=== PATIENT | female | born 1940 | race Caucasian/White ===

== ENCOUNTER 2023-05-11 17:01 | Emergency (ER) | payer OTHER, MEDICARE ==
[~2023-05-11] VITALS: Ht 172.7 cm; Wt 63.5 kg
[2023-05-11] MEDS ORDERED: FUROSEMIDE40 MG PO (17:43)
[2023-05-11] MEDS ORDERED: Potassium Chlo20 ME1 PO (17:44)
[2023-05-11] MEDS ORDERED: ESCI10 PO (17:44)
[2023-05-11] MEDS ORDERED: Flurbiprofen100 MG PO (17:45)
[2023-05-11] MEDS ORDERED: EUTHYROX100 MC1 (17:46)
[2023-05-11 18:54] LABS: BASOPHILS ABSOLUTE AUTO 0.07 K/mm3 (0.00-0.23); BASOPHILS PERCENT AUTO 1 % (0-2); EOSINOPHILS ABSOLUTE AUTO 1.15 K/mm3 (0.00-0.68); EOSINOPHILS PERCENT AUTO 11 % (0-6); Hematocrit 46.8 % (33.0-51.0); Hemoglobin 15.8 g/dL (11.5-16.0); IMMATURE GRAN ABSOLUTE AUTO 0.05 K/mm3 (0.00-0.10); IMMATURE GRAN PERCENT AUTO 1 % (0-1); LYMPHOCYTES ABSOLUTE AUTO 2.72 K/mm3 (0.84-5.20); LYMPHOCYTES PERCENT AUTO 27 % (21-46); MONOCYTES PERCENT AUTO 7 % (4-13); Mean Corpuscular HGB 30.6 pg (26.0-34.0); Mean Corpuscular HGB Conc 33.8 g/dL (31.5-36.5); Mean Corpuscular Volume 91 fL (80-100); Mean Platelet Volume 8.9 fL (9.1-12.4); NEUTROPHILS ABSOLUTE AUTO 5.57 K/mm3 (1.96-9.15); NEUTROPHILS PERCENT AUTO 54 % (41-73); Platelet Count 263 K/mm3 (150-400); RDW Coefficient Variation 13.2 % (11.7-14.2); RDW Standard Deviation 44.7 fL (35.1-46.3); Red Blood Cell Count 5.17 M/mm3 (3.80-5.20); White Blood Cell Count 10.26 K/mm3 (4.00-11.30)
[2023-05-11 19:12] LABS: Calcium, Blood 10.1 mg/dL (8.5-10.1); Creatinine, Blood 1.62 mg/dL (0.40-1.00)
[2023-05-11 19:30] LABS: International Normalized Ratio 0.94; Prothrombin Time Results 9.9 Sec (9.7-11.5)
[2023-05-11 23:00] VITALS: BP 143/62
== END 2023-05-11 23:49 | disposition home or self-care (01) ==
LOC: ER 17:01
PROVIDERS: Emergency Medicine
DX: S06.5X0A Traumatic subdural hemorrhage without loss of consciousness, initial encounter (principal); S06.6X0A Traumatic subarachnoid hemorrhage without loss of consciousness, initial encounter; W01.10XA Fall on same level from slipping, tripping and stumbling with subsequent striking against unspecified object, initial encounter; Z88.0 Allergy status to penicillin; Z88.8 Allergy status to other drugs, medicaments and biological substances; Z91.048 Other nonmedicinal substance allergy status; Z79.899 Other long term (current) drug therapy
CPT/HCPCS: 70450; 80048; 85025; 85610; 85730; A9270

== ENCOUNTER 2023-05-21 10:02 | Emergency (ER) | payer MEDICARE ==
[~2023-05-21] VITALS: Ht 170.2 cm; Wt 62.6 kg
[~2023-05-21 10:02] MED LIST: ESCI10 PO; EUTHYROX100 MC1; FUROSEMIDE40 MG PO; Flurbiprofen100 MG PO; Potassium Chlo20 ME1 PO
[2023-05-21 10:45] VITALS: BP 170/98
[2023-05-21] MEDS ORDERED: Roxicodone5 MG PO (12:45)
== END 2023-05-21 12:53 | disposition home or self-care (01) ==
LOC: ER 10:02
DX: S06.5XAA Traumatic subdural hemorrhage with loss of consciousness status unknown, initial encounter (principal); M25.512 Pain in left shoulder; W18.30XA Fall on same level, unspecified, initial encounter; Z88.0 Allergy status to penicillin; Z88.8 Allergy status to other drugs, medicaments and biological substances; Z91.048 Other nonmedicinal substance allergy status; Z79.899 Other long term (current) drug therapy
CPT/HCPCS: 70450; 73030; 99284-25

== ENCOUNTER 2023-10-02 20:05 | Inpatient (IN) | payer MEDICARE ==
[~2023-10-02] VITALS: Ht 172.7 cm; Wt 67.8 kg
[~2023-10-02 20:05] MED LIST changes: +Roxicodone5 MG PO
[2023-10-02 21:03] LABS: BASOPHILS ABSOLUTE AUTO 0.04 K/mm3 (0.00-0.23); BASOPHILS PERCENT AUTO 1 % (0-2); EOSINOPHILS ABSOLUTE AUTO 0.16 K/mm3 (0.00-0.68); EOSINOPHILS PERCENT AUTO 2 % (0-6); Hemoglobin 14.2 g/dL (11.5-16.0); IMMATURE GRAN ABSOLUTE AUTO 0.03 K/mm3 (0.00-0.10); IMMATURE GRAN PERCENT AUTO 0 % (0-1); LYMPHOCYTES ABSOLUTE AUTO 1.92 K/mm3 (0.84-5.20); LYMPHOCYTES PERCENT AUTO 26 % (21-46); MONOCYTES ABSOLUTE AUTO 0.61 K/mm3 (0.16-1.47); MONOCYTES PERCENT AUTO 8 % (4-13); Mean Corpuscular HGB 30.5 pg (26.0-34.0); Mean Corpuscular HGB Conc 33.8 g/dL (31.5-36.5); Mean Corpuscular Volume 90 fL (80-100); Mean Platelet Volume 8.7 fL (9.1-12.4); NEUTROPHILS ABSOLUTE AUTO 4.59 K/mm3 (1.96-9.15); NEUTROPHILS PERCENT AUTO 63 % (41-73); Platelet Count 223 K/mm3 (150-400); RDW Coefficient Variation 11.4 % (11.7-14.2); RDW Standard Deviation 37.4 fL (35.1-46.3); Red Blood Cell Count 4.66 M/mm3 (3.80-5.20); White Blood Cell Count 7.35 K/mm3 (4.00-11.30)
[2023-10-02 21:30] LABS: Albumin, Blood 4.1 g/dL (3.4-5.0); Albumin/Globulin Ratio 1.1 (0.8-1.8); Bilirubin, Total 0.5 mg/dL (0.1-1.0); Bun/Creatinine Ratio 14.9 (12.0-20.0); Calcium, Blood 13.8 mg/dL (8.5-10.1); Creatinine, Blood 4.02 mg/dL (0.40-1.00); Globulin, Blood 3.8 g/dL (2.2-4.0); Potassium, Blood 3.1 mmol/L (3.5-5.5); Total Protein, Blood 7.9 g/dL (6.4-8.2)
[2023-10-02 21:55] LABS: Magnesium, Blood 3.7 mg/dL (1.6-2.4)
[2023-10-03 02:12] LABS: Source, Urine Clean Catch
[2023-10-03 02:20] LABS: Bilirubin, Urine Neg (Neg); Blood, Urine 2+ (Neg); Glucose Qualitative, Urine Neg (Neg); Ketones, Urine Neg (Neg); Leukocyte Esterase, Urine 3+ (Neg); Nitrite, Urine Neg (Neg); Protein, Urine 2+ (Neg); Urobilinogen, Urine NORM (Normal)
[2023-10-03 02:38] LABS: Appearance, Urine Clear (Clear); Color, Urine Yellow (P-Yellow)
[2023-10-03 02:39] LABS: Bacteria Few /hpf; Red Blood Cells, Urine 0-2 /hpf (0-2); Squamous Epithelial Cells Rare /hpf (Few); Transitional Epithelial Cells Few /hpf (0-Rare)
[2023-10-03 03:42] VITALS: BP 187/78
[2023-10-03 05:00] VITALS: BP 160/68
--- NOTE | 2023-10-03 06:24 | NUR ---
SHIFT SUMMARY PT ER ADMIT THIS SHIFT FOR ACUTE RENAL FAILURE. PT REPORTS THAT SHE HAS BEEN HAVING WEAKNESS AT HOME. LABS REVEALED DECREASED RENAL FUNCTION AND HYPERCALCEMIA. PT MEDICATED FOR HYPERCALCEMIA WHILE IN ER. IVF HAVE BEEN STARTED PER EMAR ORDERS. PT REPORTS MILD MATT 3/10, DECLINES ANYTHING FOR PAIN. SHE DOES NOT REPORT N/V. DENIES SOB AT REST, RESP APPEAR E/U AT REST BUT PT DOES REPORT THAT SHE HAS BEEN EXPERIENCING SOME INCREASED SOB WITH A LOT OF ACTIVITY. SATS WNL ON RA. PT HYPERTENSIVE UPON ADMISSION, BP READING IS IMPROVED WITH RECENT CHECK AND DOES NOT REQUIRE PRN HYDRALYZINE PER PARAMETERS. PT RESTING IN BED AT THIS TIME. ADMISSION COMPLETE. BED IN LOWEST POSITION, CALL LIGHT WITHIN REACH.
[2023-10-03 08:20] VITALS: BP 145/69
[2023-10-03 08:30] LABS: BASOPHILS ABSOLUTE AUTO 0.05 K/mm3 (0.00-0.23); BASOPHILS PERCENT AUTO 1 % (0-2); EOSINOPHILS PERCENT AUTO 3 % (0-6); Hematocrit 37.1 % (33.0-51.0); Hemoglobin 12.7 g/dL (11.5-16.0); IMMATURE GRAN ABSOLUTE AUTO 0.03 K/mm3 (0.00-0.10); IMMATURE GRAN PERCENT AUTO 0 % (0-1); LYMPHOCYTES ABSOLUTE AUTO 2.25 K/mm3 (0.84-5.20); LYMPHOCYTES PERCENT AUTO 30 % (21-46); MONOCYTES ABSOLUTE AUTO 0.62 K/mm3 (0.16-1.47); MONOCYTES PERCENT AUTO 8 % (4-13); Mean Corpuscular HGB 30.8 pg (26.0-34.0); Mean Corpuscular HGB Conc 34.2 g/dL (31.5-36.5); Mean Corpuscular Volume 90 fL (80-100); Mean Platelet Volume 8.8 fL (9.1-12.4); NEUTROPHILS ABSOLUTE AUTO 4.42 K/mm3 (1.96-9.15); NEUTROPHILS PERCENT AUTO 58 % (41-73); Platelet Count 194 K/mm3 (150-400); RDW Coefficient Variation 11.4 % (11.7-14.2); RDW Standard Deviation 37.7 fL (35.1-46.3); Red Blood Cell Count 4.12 M/mm3 (3.80-5.20); White Blood Cell Count 7.57 K/mm3 (4.00-11.30)
[2023-10-03 08:50] LABS: Albumin, Blood 3.5 g/dL (3.4-5.0); Albumin/Globulin Ratio 1.1 (0.8-1.8); Bilirubin, Total 0.4 mg/dL (0.1-1.0); Bun/Creatinine Ratio 13.2 (12.0-20.0); Creatinine, Blood 3.7 mg/dL (0.40-1.00); Globulin, Blood 3.2 g/dL (2.2-4.0); Potassium, Blood 3.1 mmol/L (3.5-5.5); Total Protein, Blood 6.7 g/dL (6.4-8.2)
[2023-10-03 08:51] LABS: Calcium, Blood 11.7 mg/dL (8.5-10.1)
[2023-10-03 16:51] VITALS: BP 152/71
--- NOTE | 2023-10-03 17:50 | NUR ---
SHIFT SUMMARY PT AOX4, SOME CONFUSION AT TIMES. INDEPENDENT IN THE ROOM. SHE HAS BEEN SLEEPING MOST OF THE SHIFT. PT IS CONTINENT. TELE IS IN PLACE. NO COMPLAINTS THIS SHIFT. CALL LIGHT WITHIN REACH, BED IN THE LOWEST POSITION. WILL REPORT TO ONCOMING NURSE.
[2023-10-03 19:23] VITALS: BP 131/54
--- NOTE | 2023-10-03 23:05 | NUR ---
RECEIVED CALL FROM [employer] STATING THAT PT'S HEART RHYTHM HAD DEMONSTRATED A 22 BEAT RUN OF VTACH. THIS RN WAS IN THE ROOM WITH PT AT THE TIME AND PT WAS IN THE BATHROOM HAVING A BOWEL MOVEMENT, DENIED ANY SYMPTOMS. CALLED AND NOTIFIED HOSPITALIST, RECEIVED ORDER FOR POTASSIUM AND MAGNESIUM BLOOD LEVELS AND TO CALL BACK IF THE POTASSIUM IS LESS THAN FOUR OR IF THE MAGNESIUM IS LESS THAN TWO.
[2023-10-03 23:37] LABS: Magnesium, Blood 2.3 mg/dL (1.6-2.4); Potassium, Blood 3.8 mmol/L (3.5-5.5)
[2023-10-04 04:02] VITALS: BP 131/62
[2023-10-04 05:00] LABS: Hematocrit 36.2 % (33.0-51.0); Hemoglobin 12.1 g/dL (11.5-16.0); Mean Corpuscular HGB 30.3 pg (26.0-34.0); Mean Corpuscular HGB Conc 33.4 g/dL (31.5-36.5); Mean Corpuscular Volume 91 fL (80-100); Platelet Count 188 K/mm3 (150-400); RDW Coefficient Variation 11.7 % (11.7-14.2); RDW Standard Deviation 38.7 fL (35.1-46.3); White Blood Cell Count 6.22 K/mm3 (4.00-11.30)
[2023-10-04 05:35] LABS: Albumin, Blood 3.2 g/dL (3.4-5.0); Anion Gap 6 mmol/L (6-16); Blood Urea Nitrogen 44 mg/dL (8-24); Bun/Creatinine Ratio 13.3 (12.0-20.0); CO2, Blood 24 mmol/L (21-32); Chloride, Blood 108 mmol/L (98-108); Creatinine, Blood 3.31 mg/dL (0.40-1.00); Glomerular Filtration Rate 13 (60-); Glucose, Blood 98 mg/dL (70-99); Magnesium, Blood 2.4 mg/dL (1.6-2.4); Phosphorus, Blood 2.9 mg/dL (2.5-4.9); Potassium, Blood 3.4 mmol/L (3.5-5.5); Sodium, Blood 138 mmol/L (136-145)
--- NOTE | 2023-10-04 05:56 | NUR ---
SHIFT SUMMARY: MARK IS A&OX4. VSS, ONE 22-BEAT RUN OF VTACH WHICH WAS REPORTED TO THE HOSPITALIST, PLEASE SEE ORDERS. PT DENIES ANY CHEST PAIN OR SOB, IS TOLERATING PO INTAKE WELL, AND REPORTS THAT HER RIGHT GREAT TOE IS PAINFUL WHEN "SQUEEZED" AND STATES THAT IT MAY BE THE SOURCE OF HER PROBLEMS. PT HAD A BOWEL MOVEMENT THIS SHIFT. IV TO R AC PATENT. SHE IS LYING IN BED WITH THE CALL LIGHT IN REACH. REPORT WILL BE GIVEN TO ONCOMING SHIFT.
[2023-10-04 07:16] VITALS: BP 128/55
[2023-10-04 16:48] VITALS: BP 145/65
--- NOTE | 2023-10-04 17:48 | NUR ---
SHIFT SUMMARY PT AOX4, INDEPENDENT IN THE ROOM. DAUGHTER AND NEIGHBOR AT THE BS THIS SHIFT, DISCUSSED PLAN OF CARE WITH THE PROVIDER. NO COMPLAINTS FROM THE PT. NO EVENTS PER TELE THIS SHIFT. CALL LIGHT WITHIN REACH, BED IN THE LOWEST POSITION. WILL REPORT TO ONCOMING NURSE.
[2023-10-04 20:51] VITALS: BP 142/91
[2023-10-05 02:44] VITALS: BP 146/64
--- NOTE | 2023-10-05 04:21 | NUR ---
SHIFT SUMMARY: MARK IS A&OX4. VSS, NO ACUTE EVENTS THIS SHIFT. SHE IS TOLERATING PO INTAKE WELL AND IS INDEPENDENT IN THE ROOM. SHE HAS DENIED PAIN THIS SHIFT AND USES THE CALL LIGHT APPROPRIATELY. SHE IS LYING IN BED WITH THE CALL LIGHT IN REACH. WILL GIVE REPORT TO ONCOMING SHIFT.
[2023-10-05 05:24] LABS: Albumin, Blood 3.1 g/dL (3.4-5.0); Anion Gap 7 mmol/L (6-16); Blood Urea Nitrogen 32 mg/dL (8-24); Bun/Creatinine Ratio 12.4 (12.0-20.0); CO2, Blood 21 mmol/L (21-32); Calcium, Blood 9.6 mg/dL (8.5-10.1); Chloride, Blood 114 mmol/L (98-108); Creatinine, Blood 2.58 mg/dL (0.40-1.00); Glomerular Filtration Rate 18 (60-); Glucose, Blood 88 mg/dL (70-99); Phosphorus, Blood 2.7 mg/dL (2.5-4.9); Potassium, Blood 3.5 mmol/L (3.5-5.5); Sodium, Blood 142 mmol/L (136-145)
[2023-10-05 08:16] VITALS: BP 146/62
[2023-10-05 16:22] VITALS: BP 155/64
--- NOTE | 2023-10-05 18:24 | NUR ---
SHIFT SUMMARY: PT A&O X4. PLEASANT AND COOPERATIVE WITH CARE. INDEPENDENT IN ROOM. NO ACUTE CHANGES THIS SHIFT. 11/27 NS FINISHED. 1X BAG NS ORDERED @100/HR. ON TELE RUNNING SINUS RHYHTM. LYING IN BED COMFORTABLY AT THIS TIME. CALL LIGHT IN REACH. BED IN LOWEST POSITION.
[2023-10-05 19:27] VITALS: BP 134/61
--- NOTE | 2023-10-06 02:15 | NUR ---
SHIFT SUMMARY PT RESTING QUIETLY IN BED WATCHING TV DURING SHIFT REPORT. IVF'S INFUSING. PT TO BE SL AFTER THIS BAG COMPLETE. RENAL FUCTIONS HAVE IMPROVED ONLY SLIGHTLY; SEE CHART. PT IS A&O, PLEASANT AND CO-OP WITH CARE. UP INDEPENDENTLY IN AND TO [facility]. SR ON TELE. POSSIBLE D/C TO HOME LATER TODAY. PT DENIED NEEDS. REPORTED THAT SHE HAS BEEN SLEEPING WELL. CALL LT IN REACH.
[2023-10-06 05:07] VITALS: BP 150/69
[2023-10-06 05:51] LABS: Albumin, Blood 3.2 g/dL (3.4-5.0); Anion Gap 7 mmol/L (6-16); Blood Urea Nitrogen 26 mg/dL (8-24); Bun/Creatinine Ratio 12.1 (12.0-20.0); CO2, Blood 19 mmol/L (21-32); Chloride, Blood 116 mmol/L (98-108); Creatinine, Blood 2.15 mg/dL (0.40-1.00); Glomerular Filtration Rate 22 (60-); Glucose, Blood 90 mg/dL (70-99); Phosphorus, Blood 2.4 mg/dL (2.5-4.9); Potassium, Blood 3.5 mmol/L (3.5-5.5); Sodium, Blood 142 mmol/L (136-145)
[2023-10-06 08:09] VITALS: BP 172/78
[2023-10-06 08:53] VITALS: BP 163/83
[2023-10-06 11:08] VITALS: BP 142/73
[2023-10-06] MEDS ORDERED: ACET500 PO (11:24)
[2023-10-06] MEDS ORDERED: CINA30 PO (11:25)
[2023-10-06] MEDS ORDERED: AMLO5 PO (11:25)
[2023-10-07 01:11] LABS: ALBUMIN 3.78 g/dL (3.75-5.01); ALPHA 1 GLOBULIN 0.26 g/dL (0.19-0.46); ALPHA 2 GLOBULIN 0.98 g/dL (0.48-1.05); BETA GLOBULIN 0.64 g/dL (0.48-1.10); GAMMA 0.85 g/dL (0.62-1.51); IMMUNOFIXATION REFLEX Not Done; TOTAL PROTEIN,SERUM 6.5 g/dL (6.3-8.2)
== END 2023-10-06 12:19 | disposition home or self-care (01) | DRG 683 ==
LOC: ER 20:05 → MEDS 10-03 02:49 → ENPENDDIS 10-06 10:01 → MEDS 10-06 12:19
PROVIDERS: Emergency Medicine; Hospitalist; Internal Medicine; Nurse Practitioner Acute Care; Physician Assistant; ADMIT Internal Medicine
DX: N17.9 Acute kidney failure, unspecified (principal); E87.20 Acidosis, unspecified; E83.52 Hypercalcemia; E03.9 Hypothyroidism, unspecified; E87.6 Hypokalemia; N18.30 Chronic kidney disease, stage 3 unspecified; E83.41 Hypermagnesemia; E86.0 Dehydration; E86.9 Volume depletion, unspecified; M19.90 Unspecified osteoarthritis, unspecified site; F32.A Depression, unspecified; R00.1 Bradycardia, unspecified; Z88.0 Allergy status to penicillin; Z91.048 Other nonmedicinal substance allergy status; Z79.890 Hormone replacement therapy; Z79.891 Long term (current) use of opiate analgesic; Z90.89 Acquired absence of other organs; Z90.49 Acquired absence of other specified parts of digestive tract; Z90.721 Acquired absence of ovaries, unilateral; Z86.79 Personal history of other diseases of the circulatory system; Z91.81 History of falling
CPT/HCPCS: 36415; 70450; 71046; 74176; 80053; 80069; 81001; 82330; 82533; 82570; 83735; 83880; 83970; 84132; 84156; 84443; 85025; 85027; 93005; 93010; 96365; 96366; 96372-59; 99285-25; A9270; J0630; J1644; J3480; J3489; J7030; J7050

== ENCOUNTER → 2025-05-30 | Outpatient (CLI) | payer MEDICARE ==
[~2025-05-30] MED LIST changes: +ACET500 PO; +AMLO5 PO; +CINA30 PO
[2025-05-30 16:05] LABS: BASOPHILS ABSOLUTE AUTO 0.02 K/mm3 (0.00-0.23); BASOPHILS PERCENT AUTO 0 % (0-2); EOSINOPHILS ABSOLUTE AUTO 0.08 K/mm3 (0.00-0.68); EOSINOPHILS PERCENT AUTO 1 % (0-6); Hematocrit 38.7 % (33.0-51.0); Hemoglobin 12.4 g/dL (11.5-16.0); IMMATURE GRAN ABSOLUTE AUTO 0.01 K/mm3 (0.00-0.10); IMMATURE GRAN PERCENT AUTO 0 % (0-1); LYMPHOCYTES ABSOLUTE AUTO 2.08 K/mm3 (0.84-5.20); LYMPHOCYTES PERCENT AUTO 32 % (21-46); MONOCYTES ABSOLUTE AUTO 0.39 K/mm3 (0.16-1.47); MONOCYTES PERCENT AUTO 6 % (4-13); Mean Corpuscular HGB Conc 32.0 g/dL (31.5-36.5); Mean Corpuscular Volume 100 fL (80-100); NEUTROPHILS ABSOLUTE AUTO 3.93 K/mm3 (1.96-9.15); NEUTROPHILS PERCENT AUTO 60 % (41-73); NRBC ABSOLUTE 0.00 K/mm3 (0.00-0.02); NRBC Auto 0.0 /100 WBC (0.0-0.2); Platelet Count 201 K/mm3 (150-400); RDW Coefficient Variation 12.8 % (11.7-14.2); RDW Standard Deviation 47.5 fL (35.1-46.3)
[2025-05-30 21:08] LABS: Alanine Aminotransfer (ALT/SGP 25.0 U/L (12-78); Albumin, Blood 3.8 g/dL (3.4-5.0); Albumin/Globulin Ratio 1.6 (0.8-1.8); Anion Gap 12.0 mmol/L (3-11); Aspartate Aminotrans (AST/SGOT 15.0 U/L (12-37); Bilirubin, Total 0.3 mg/dL (0.1-1.0); Blood Urea Nitrogen 20.0 mg/dL (8-24); CO2, Blood 19.0 mmol/L (21-32); Calcium, Blood 9.3 mg/dL (8.5-10.1); Chloride, Blood 110.0 mmol/L (98-108); Creatinine, Blood 0.88 mg/dL (0.40-1.00); Globulin, Blood 2.4 g/dL (2.2-4.0); Glucose, Blood 89.0 mg/dL (70-99); Potassium, Blood 4.2 mmol/L (3.5-5.5); Sodium, Blood 137.0 mmol/L (136-145); Thyroid Stimulating Hormone 0.692 uIU/mL (0.360-4.800); Total Protein, Blood 6.2 g/dL (6.4-8.2)
== END | disposition home or self-care (01) ==
LOC: LAB 10:15 → LAB SHORT 10:15
PROVIDERS: Internal Medicine
DX: E03.9 Hypothyroidism, unspecified (principal); I10 Essential (primary) hypertension
CPT/HCPCS: 80053; 84439; 84443; 85025